=== PATIENT | male | born 2000 | race Caucasian/White ===

== ENCOUNTER 2020-08-09 03:41 | Outpatient (CLI) | payer MEDICAID, SELFPAY ==
[2020-08-10 13:55] LABS: COVID-19 RT-PCR UVMMC Result Negative (Negative)
== END 2020-08-09 03:42 | disposition home or self-care (01) ==
PROVIDERS: PCP Nurse Practitioner Pediatrics; Visit Provider Pediatrics
DX: Z20.822 Contact with and (suspected) exposure to COVID-19 (principal)
CPT/HCPCS: U0003

== ENCOUNTER 2020-08-13 19:02 | Outpatient (REF) | payer MEDICAID, SELFPAY ==
[2020-08-15 14:04] LABS: COVID-19 RT-PCR UVMMC Result Negative (Negative)
== END 2020-08-13 19:03 | disposition home or self-care (01) ==
LOC: LBN 19:02
PROVIDERS: PCP Nurse Practitioner Pediatrics; Visit Provider Pediatrics
DX: Z20.822 Contact with and (suspected) exposure to COVID-19 (principal)
CPT/HCPCS: U0003

== ENCOUNTER 2020-12-18 20:18 | Outpatient (REF) | payer MEDICAID, SELFPAY ==
[2020-12-20 10:51] LABS: COVID-19 RT-PCR UVMMC Result Negative (Negative)
== END 2020-12-18 20:19 | disposition home or self-care (01) ==
LOC: LBN 20:18
PROVIDERS: PCP Nurse Practitioner Pediatrics; Visit Provider Student in an Organized Health Care Education/Training Program
DX: Z20.822 Contact with and (suspected) exposure to COVID-19 (principal)
CPT/HCPCS: U0003

== ENCOUNTER 2021-02-19 17:49 | Outpatient (REF) | payer MEDICAID, SELFPAY | END 2021-02-19 17:50 | disposition home or self-care (01) | LOC: LBN 17:49 | DX: R30.0 Dysuria (principal) | CPT/HCPCS: 87491; 87591 ==